=== PATIENT | female | born 1965 | race Caucasian/White ===

== ENCOUNTER 2017-06-04 17:46 | Emergency (ER) ==
[2017-06-04 17:59] VITALS: BP 163/93; TEMP 99.8; BMI 26.5
--- NOTE | 2017-06-04 18:10 | ED.PDOC ---
General ED Provider: Dr. JOCE TEJADA Chief Complaint: Tooth Problem Stated Complaint: dental pain Time Seen by Physician: 17:55 (seen with braden chong at all times ) Mode of Arrival: Walk-In Information Source: Patient Exam Limitations: No limitations Primary Care Provider: NOEMI GUERRERO Nursing and Triage Documentation Reviewed and Agree: Yes Reviewed sepsis parameters & appropriate labs ordered?: Yes System Inflammatory Response Syndrome: Not Applicable Sepsis Protocol: For patient's 13 years and over: Temp is 96.8 and below OR 101 and greater Pulse >90 BPM Resp >20/minute Acutely Altered Mental Status Are patient's symptoms suggestive of a new infection, such as: -Pneumonia -Skin, Soft Tissue -Endocarditis -UTI -Bone, Joint Infection -Implantable Device -Acute Abdominal Infection -Wound Infection -Meningitis -Blood Stream Catheter Infection -Unknown System Inflammatory Response Syndrome: Not Applicable EENT Complaint Exam - Dental/Oral Complaint/Exam Mechanism of Injury: No known trauma Onset/Duration: chronic Symptoms Are: Still present Timing: Constant Initial Severity: Moderate Current Severity: Moderate Character: Reports: Dull, Aching Aggravating: Reports: Heat, Cold, Chewing Alleviating: Reports: Heat, Cold Associated Signs and Symptoms: Denies: Swelling, Discharge, Fever, Foul odor, Foul taste in mouth Related History: Reports: Similar episode Cardiac Risk Factors: Reports: Hypertension Dental/Oral Surgical History: Reports: None Tooth Findings: Present: Gross decay, Gross caries Cervical Lymphadenopathy Present: No Facial Swelling Present: No Bleeding Present: No Septal Hematoma: No Foreign Body Present: No Dysphagia Present: No Drooling Present: No Asymmetrical Tonsillar Swelling Present: No Uvula Midline: No Alyssa-tonsillar Fluctuence: No Trismus Present: No Palatal Petechiae Present: No Scarlatinaform Rash Present: No Teeth Picture: 1 - decay poor dentition Differential Diagnoses: Dental Caries, Fractured Tooth Review of Systems - Review Of Systems Constitutional: Reports: No symptoms Eyes: Reports: No symptoms Ears, Nose, Mouth, Throat: Reports: No symptoms Respiratory: Reports: No symptoms Cardiac: Reports: No symptoms GI: Reports: No symptoms : Reports: No symptoms Musculoskeletal: Reports: No symptoms Skin: Reports: No symptoms Neurological: Reports: No symptoms Endocrine: Reports: No symptoms Hematologic/Lymphatic: Reports: No symptoms All Other Systems: Reviewed and Negative Past Medical History - Past Medical History Endocrine: Reports: Dyslipidemia Cardiovascular: Reports: CAD, Hypertension Respiratory: Reports: None Hematological: Reports: None Gastrointestinal: Reports: None Genitourinary: Reports: None Neuro/Psych: Reports: Anxiety, Depression Musculoskeletal: Reports: None Cancer: Reports: None Last Menstrual Period: hysterectomy Other Pertinent Past Medical History: CHRONIC BACK - Surgical History General Surgical History: Reports: (x3), Appendectomy, Cholecystectomy , Orthopedic (knee), Back Surgery (x3 chronic pain) - Family History Family History: Reports: Unknown - Social History Smoking Status: Current every day smoker, Heavy tobacco smoker Hx Substance Use: No Alcohol Screening: None Physical Exam - Physical Exam Appearance: Well-appearing, No pain distress, Well-nourished Eyes: JES, EOMI, Conjunctiva clear ENT: Ears normal, Nose normal, Oropharynx normal Respiratory: Airway patent, Breath sounds clear, Breath sounds equal, Respirations nonlabored Cardiovascular: RRR, Pulses normal, No rub, No murmur GI/: Soft, Nontender, No masses, Bowel sounds normal, No Organomegaly Musculoskeletal: Normal strength, ROM intact, No edema, No calf tenderness Skin: Warm, Dry, Normal color Neurological: Sensation intact, Motor intact, Reflexes intact, Cranial nerves intact, Alert, Oriented Psychiatric: Affect appropriate, Mood appropriate Critical Care Note - Critical Care Note Total Time (mins): 0 Course - Course Vital Signs: Temp Pulse Resp BP Pulse Ox 06/04/17 17:47 99.8 F H 101 H 20 163/93 H 101 H Departure - Departure Time of Disposition: 18:10 Disposition: HOME SELF-CARE Discharge Problem: Toothache Instructions: Toothache (ED) Condition: Good Pt referred to PMD for follow-up: Yes IPMP verified?: Yes Prescriptions: Hydrocodone/Acetaminophen [[place] 5-325 Tablet] 1 each PO Q6HR PRN #7 tablet PRN Reason: PAIN Amoxicillin 500 mg PO Q8HR #21 tablet Allergies/Adverse Reactions: Allergies morphine Adverse Reaction (Verified 06/04/17 17:56) PROJECTILE VOMITING Home Medications: Ambulatory Orders Amlodipine Besylate [Norvasc] 5 mg PO DAILY 04/16/13 Ranitidine HCl [Zantac] 150 mg PO BIDAC 04/09/14 Lisinopril/Hydrochlorothiazide [Lisinopril-Hctz 20-25 mg Tab] 1 each PO DAILY Albuterol Sulfate [Proair Hfa] 2 puff IH DIRECTED PRN 06/04/17 Amoxicillin 500 mg PO Q8HR #21 tablet 06/04/17 Hydrocodone/Acetaminophen [[place] 5-325 Tablet] 1 each PO Q6HR PRN #7 tablet
== END 2017-06-04 18:14 | disposition home or self-care (01) ==
LOC: ED 17:46
DX: K08.89 Other specified disorders of teeth and supporting structures (principal); K02.7 Dental root caries; F17.210 Nicotine dependence, cigarettes, uncomplicated
CPT/HCPCS: 99282

== ENCOUNTER 2017-09-21 16:29 | Emergency (ER) ==
[2017-09-21 16:33] VITALS: TEMP 99.2; BMI 24.5
[2017-09-21] MEDS ORDERED: MORPHINE 2 MG/ML SYRINGE IM STA (16:51)
[2017-09-21] MEDS ORDERED: ZOFRAN 4 MG/2 ML IM STA (16:51)
--- NOTE | 2017-09-21 16:55 | ED.PDOC ---
General ED Provider: Dr. JOCE TEJADA Chief Complaint: Tooth Problem Stated Complaint: DENTAL PAIN Time Seen by Physician: 16:30 Mode of Arrival: Walk-In Information Source: Patient Exam Limitations: No limitations Nursing and Triage Documentation Reviewed and Agree: Yes Reviewed sepsis parameters & appropriate labs ordered?: Yes System Inflammatory Response Syndrome: Not Applicable Sepsis Protocol: For patient's 13 years and over: Temp is 96.8 and below OR 101 and greater Pulse >90 BPM Resp >20/minute Acutely Altered Mental Status Are patient's symptoms suggestive of a new infection, such as: -Pneumonia -Skin, Soft Tissue -Endocarditis -UTI -Bone, Joint Infection -Implantable Device -Acute Abdominal Infection -Wound Infection -Meningitis -Blood Stream Catheter Infection -Unknown EENT Complaint Exam - Dental/Oral Complaint/Exam Mechanism of Injury: No known trauma Onset/Duration: 1 WEEK Symptoms Are: Still present Timing: Constant Initial Severity: Severe Current Severity: Moderate Character: Reports: Aching, Throbbing Aggravating: Reports: Heat, Cold, Chewing Alleviating: Reports: None Associated Signs and Symptoms: Denies: Swelling, Discharge, Fever, Foul odor, Foul taste in mouth Related History: Reports: Similar episode Dental/Oral Surgical History: Reports: None Tooth Findings: Present: Gross decay, Gross caries, Dental fracture Cervical Lymphadenopathy Present: No Facial Swelling Present: No Bleeding Present: No Oropharynx Findings: Absent: Clots, Active bleeding Septal Hematoma: No Foreign Body Present: No Dysphagia Present: No Drooling Present: No Asymmetrical Tonsillar Swelling Present: No Uvula Midline: Yes Alyssa-tonsillar Fluctuence: No Lesions: Absent: Lip, Gums, Tongue, Buccal Mucosa, Pharynx Exanthem: Absent: Lip, Gums, Tongue, Buccal Mucosa, Pharynx Vesicles: Absent: Lip, Gums, Tongue, Buccal Mucosa, Pharynx Teeth Picture: 1 - DECAY/PAIN Differential Diagnoses: Dental Caries, Fractured Tooth Review of Systems - Review Of Systems Constitutional: Reports: No symptoms Eyes: Reports: No symptoms Ears, Nose, Mouth, Throat: Reports: No symptoms Respiratory: Reports: No symptoms Cardiac: Reports: No symptoms GI: Reports: No symptoms : Reports: No symptoms Musculoskeletal: Reports: No symptoms Skin: Reports: No symptoms Neurological: Reports: No symptoms Endocrine: Reports: No symptoms Hematologic/Lymphatic: Reports: No symptoms All Other Systems: Reviewed and Negative Past Medical History - Past Medical History Previously Healthy: Yes Endocrine: Reports: Dyslipidemia Cardiovascular: Reports: CAD, Hypertension Respiratory: Reports: None Hematological: Reports: None Gastrointestinal: Reports: None Genitourinary: Reports: None Neuro/Psych: Reports: Anxiety, Depression Musculoskeletal: Reports: None Cancer: Reports: None Last Menstrual Period: NONE / HYSTERECTOMY Other Pertinent Past Medical History: CHRONIC BACK - Surgical History General Surgical History: Reports: (x3), Appendectomy, Cholecystectomy , Orthopedic (knee), Back Surgery (x3 chronic pain) - Family History Family History: Reports: Unknown - Social History Smoking Status: Current every day smoker, Heavy tobacco smoker Hx Substance Use: No Alcohol Screening: None - Immunizations Tetanus Shot up to Date: Yes Physical Exam - Physical Exam Appearance: Well-appearing, No pain distress, Well-nourished Eyes: JES, EOMI, Conjunctiva clear ENT: Ears normal, Nose normal, Oropharynx normal Respiratory: Airway patent, Breath sounds clear, Breath sounds equal, Respirations nonlabored Cardiovascular: RRR, Pulses normal, No rub, No murmur GI/: Soft, Nontender, No masses, Bowel sounds normal, No Organomegaly Musculoskeletal: Normal strength, ROM intact, No edema, No calf tenderness Skin: Warm, Dry, Normal color Neurological: Sensation intact, Motor intact, Reflexes intact, Cranial nerves intact, Alert, Oriented Psychiatric: Affect appropriate, Mood appropriate Critical Care Note - Critical Care Note Total Time (mins): 0 Course - Course Orders, Labs, Meds: Orders Category Date Time Status Morphine Sulfate [Morphine 2 mg/ml Syringe] MEDS 09/21/17 16:51 Stat 4 mg IM ONCE STA Ondansetron HCl/Pf [Zofran 4 mg/2 ml] MEDS 09/21/17 16:51 Stat 4 mg IM ONCE STA Medications Generic Name Dose Route Start Last Admin Trade Name Freq PRN Reason Stop Dose Admin Morphine Sulfate 4 mg 09/21/17 16:51 Morphine 2 Mg/Ml Syringe IM 09/21/17 16:52 ONCE STA Ondansetron HCl 4 mg 09/21/17 16:51 Zofran 4 Mg/2 Ml IM 09/21/17 16:52 ONCE STA Vital Signs: Temp Pulse Resp BP Pulse Ox 09/21/17 16:30 99.2 F 109 H 20 197/127 H 97 Departure - Departure Time of Disposition: 16:55 Disposition: HOME SELF-CARE Discharge Problem: Toothache Instructions: Toothache (ED) Condition: Good Pt referred to PMD for follow-up: Yes IPMP verified?: No Additional Instructions: Please call your Family Physician as soon as possible to schedule a follow-up appointment. Prescriptions: Amoxicillin 500 mg PO Q8HR #21 tablet Hydrocodone/Acetaminophen [[place] 10-325 Tablet] 1 each PO Q8HR #10 tablet Allergies/Adverse Reactions: Allergies aspirin [From Anacin] Adverse Reaction (Verified 09/21/17 16:33) morphine Adverse Reaction (Verified 09/21/17 16:33) PROJECTILE VOMITING Home Medications: Ambulatory Orders Amlodipine Besylate [Norvasc] 5 mg PO DAILY 04/16/13 Ranitidine HCl [Zantac] 150 mg PO BIDAC 04/09/14 Lisinopril/Hydrochlorothiazide [Lisinopril-Hctz 20-25 mg Tab] 1 each PO DAILY Albuterol Sulfate [Proair Hfa] 2 puff IH DIRECTED PRN 06/04/17 Amoxicillin 500 mg PO Q8HR #21 tablet 06/04/17 Hydrocodone/Acetaminophen [[place] 5-325 Tablet] 1 each PO Q6HR PRN #7 tablet Amoxicillin 500 mg PO Q8HR #21 tablet 09/21/17 Hydrocodone/Acetaminophen [[place] 10-325 Tablet] 1 each PO Q8HR #10 tablet
[2017-09-21] MEDS ORDERED: DEMEROL 50 MG/ML VIAL IM STA (17:01)
[2017-09-21 17:19] VITALS: BP 153/99
== END 2017-09-21 17:13 | disposition home or self-care (01) ==
LOC: ED 16:29
DX: K08.89 Other specified disorders of teeth and supporting structures (principal); K02.7 Dental root caries; S02.5XXA Fracture of tooth (traumatic), initial encounter for closed fracture; F17.210 Nicotine dependence, cigarettes, uncomplicated
CPT/HCPCS: 96372; 99282

== ENCOUNTER 2017-11-21 18:35 | Emergency (ER) ==
--- NOTE | 2017-11-21 18:39 | ED.PDOC ---
General ED Provider: Dr. BRANDON MONTIEL-ER Chief Complaint: Tooth Problem Stated Complaint: my tooth hurts Time Seen by Physician: 18:37 Mode of Arrival: Walk-In Information Source: Patient Nursing and Triage Documentation Reviewed and Agree: Yes Does patient meet sepsis criteria?: No System Inflammatory Response Syndrome: Not Applicable Sepsis Protocol: For patient's 13 years and over: Temp is 96.8 and below OR 101 and greater Pulse >90 BPM Resp >20/minute Acutely Altered Mental Status Are patient's symptoms suggestive of a new infection, such as: -Pneumonia -Skin, Soft Tissue -Endocarditis -UTI -Bone, Joint Infection -Implantable Device -Acute Abdominal Infection -Wound Infection -Meningitis -Blood Stream Catheter Infection -Unknown EENT Complaint Exam - Dental/Oral Complaint/Exam Mechanism of Injury: No known trauma Onset/Duration: several days Symptoms Are: Still present Timing: Constant Initial Severity: Mild Current Severity: Moderate Location: left premolar upper and left lower premolar Character: Reports: Dull, Aching, Throbbing Aggravating: Reports: None Alleviating: Reports: None Associated Signs and Symptoms: Reports: Swelling Related History: Reports: Previous tooth problem Tooth Findings: Present: Percussion tenderness, Gross decay, Gross caries Cervical Lymphadenopathy Present: No Facial Swelling Present: No Bleeding Present: No Oropharynx Findings: Absent: Clots, Active bleeding Septal Hematoma: No Foreign Body Present: No Dysphagia Present: No Drooling Present: No Asymmetrical Tonsillar Swelling Present: No Uvula Midline: Yes Alyssa-tonsillar Fluctuence: No Trismus Present: No Palatal Petechiae Present: No Scarlatinaform Rash Present: No Differential Diagnoses: Dental Caries Review of Systems - Review Of Systems Constitutional: Reports: No symptoms Eyes: Reports: No symptoms Ears, Nose, Mouth, Throat: Reports: Mouth pain Respiratory: Reports: No symptoms Cardiac: Reports: No symptoms GI: Reports: No symptoms : Reports: No symptoms Musculoskeletal: Reports: No symptoms Skin: Reports: No symptoms Neurological: Reports: No symptoms Endocrine: Reports: No symptoms Hematologic/Lymphatic: Reports: No symptoms All Other Systems: Reviewed and Negative Past Medical History - Past Medical History Previously Healthy: Yes Endocrine: Reports: Dyslipidemia Cardiovascular: Reports: CAD, Hypertension Respiratory: Reports: None Hematological: Reports: None Gastrointestinal: Reports: None Genitourinary: Reports: None Neuro/Psych: Reports: Anxiety, Depression Musculoskeletal: Reports: None Cancer: Reports: None Other Pertinent Past Medical History: CHRONIC BACK - Surgical History General Surgical History: Reports: (x3), Appendectomy, Cholecystectomy , Orthopedic (knee), Back Surgery (x3 chronic pain) - Family History Family History: Reports: Unknown - Social History Smoking Status: Current every day smoker, Heavy tobacco smoker Hx Substance Use: No Alcohol Screening: None Physical Exam - Physical Exam Appearance: Well-appearing, No pain distress, Well-nourished Pain Distress: Mild Eyes: JES ENT: Ears normal, Nose normal, Oropharynx normal (noted several carious teeth in mouth) Neck: Supple Respiratory: Airway patent, Breath sounds clear, Breath sounds equal, Respirations nonlabored Cardiovascular: RRR, Pulses normal, No rub, No murmur GI/: Soft Musculoskeletal: Normal strength, ROM intact, No edema, No calf tenderness Skin: Warm, Dry, Normal color Neurological: Sensation intact Psychiatric: Affect appropriate, Mood appropriate Critical Care Note - Critical Care Note Total Time (mins): 0 Departure - Departure Time of Disposition: 18:39 Disposition: HOME SELF-CARE Discharge Problem: Toothache Instructions: Toothache (ED) Condition: Good Pt referred to PMD for follow-up: Yes IPMP verified?: No Additional Instructions: clindamycin 300mg tid x 7 days--norco 7.5 mg q 4hrs prn pain #10---f/u dentist aliyah Allergies/Adverse Reactions: Allergies aspirin [From Anacin] Adverse Reaction (Verified 09/21/17 16:33) morphine Adverse Reaction (Verified 09/21/17 16:33) PROJECTILE VOMITING Home Medications: Ambulatory Orders Amlodipine Besylate [Norvasc] 5 mg PO DAILY 04/16/13 Ranitidine HCl [Zantac] 150 mg PO BIDAC 04/09/14 Lisinopril/Hydrochlorothiazide [Lisinopril-Hctz 20-25 mg Tab] 1 each PO DAILY Albuterol Sulfate [Proair Hfa] 2 puff IH DIRECTED PRN 06/04/17 Amoxicillin 500 mg PO Q8HR #21 tablet 06/04/17 Hydrocodone/Acetaminophen [[place] 5-325 Tablet] 1 each PO Q6HR PRN #7 tablet Amoxicillin 500 mg PO Q8HR #21 tablet 09/21/17 Hydrocodone/Acetaminophen [[place] 10-325 Tablet] 1 each PO Q8HR #10 tablet Disposition Discussed With: Patient, Family
[2017-11-21 18:40] VITALS: BP 162/88; TEMP 99.4; BMI 25.2
== END 2017-11-21 18:57 | disposition home or self-care (01) ==
LOC: ED 18:35
DX: K08.89 Other specified disorders of teeth and supporting structures (principal); K02.7 Dental root caries; F17.210 Nicotine dependence, cigarettes, uncomplicated
CPT/HCPCS: 99282

== ENCOUNTER 2018-09-02 12:44 | Emergency (ER) | payer OTHER ==
[2018-09-02 12:49] VITALS: BP 169/97; TEMP 98.6; BMI 23.6
--- NOTE | 2018-09-02 13:15 | ED.PDOC ---
General ED Provider: Dr. JOCE TEJADA Chief Complaint: Bite Stated Complaint: in the emergency room for M.D. to remove a tick right neck over the carotid region right Time Seen by Physician: 13:00 (see photos) Mode of Arrival: Walk-In Information Source: Patient Exam Limitations: No limitations Nursing and Triage Documentation Reviewed and Agree: Yes Does patient meet sepsis criteria?: Yes If yes, has appropriate treatment been initiated?: No (SEEN WITH JESSA AT ALL TIMES) System Inflammatory Response Syndrome: Not Applicable (see photos) Sepsis Protocol: For patient's 13 years and over: Temp is 96.8 and below OR 101 and greater Pulse >90 BPM Resp >20/minute Acutely Altered Mental Status Are patient's symptoms suggestive of a new infection, such as: -Pneumonia -Skin, Soft Tissue -Endocarditis -UTI -Bone, Joint Infection -Implantable Device -Acute Abdominal Infection -Wound Infection -Meningitis -Blood Stream Catheter Infection -Unknown Skin Complaint Exam - Skin/Soft Tissue Complaint/Exam Onset/Duration: 1 day ago noted a tick Symptoms Are: Still present, Resolved Review of Systems - Review Of Systems Constitutional: Reports: Malaise Eyes: Reports: No symptoms Ears, Nose, Mouth, Throat: Reports: No symptoms Respiratory: Reports: No symptoms Cardiac: Reports: No symptoms GI: Reports: Abdominal pain (epigastric ), Nausea, Poor appetite. Denies: Blood streaked bowels, Diarrhea, Vomiting : Reports: No symptoms Musculoskeletal: Reports: No symptoms Skin: Reports: No symptoms Neurological: Reports: No symptoms Endocrine: Reports: No symptoms Hematologic/Lymphatic: Reports: No symptoms All Other Systems: Reviewed and Negative Past Medical History - Past Medical History Previously Healthy: Yes Endocrine: Reports: Dyslipidemia Cardiovascular: Reports: CAD, Hypertension Respiratory: Reports: None Hematological: Reports: None Gastrointestinal: Reports: None Genitourinary: Reports: None Neuro/Psych: Reports: Anxiety, Depression Musculoskeletal: Reports: None Cancer: Reports: None Last Menstrual Period: N/A Other Pertinent Past Medical History: CHRONIC BACK - Surgical History General Surgical History: Reports: (x3), Appendectomy, Cholecystectomy , Orthopedic (knee), Back Surgery (x3 chronic pain) - Family History Family History: Reports: Unknown - Social History Smoking Status: Current every day smoker, Heavy tobacco smoker Hx Substance Use: No Alcohol Screening: None - Immunizations Tetanus Shot up to Date: No Physical Exam - Physical Exam Appearance: Ill-appearing Ill-appearing: Moderate Pain Distress: Severe Eyes: JES, EOMI, Conjunctiva clear ENT: Ears normal, Nose normal, Oropharynx normal Respiratory: Airway patent, Breath sounds clear, Breath sounds equal, Respirations nonlabored Cardiovascular: RRR, Pulses normal, No rub, No murmur GI/: Tender Musculoskeletal: Normal strength, ROM intact, No edema, No calf tenderness Skin: Warm (NO TICK NOTED ON THE RIGHT NECK REGION), Dry, Normal color Neurological: Sensation intact, Motor intact, Reflexes intact, Cranial nerves intact, Alert, Oriented Psychiatric: Affect appropriate, Mood appropriate Interpretation - Radiology Interpretation Radiology Interpretation By: Radiologist Radiology Results: Positive (S.B.O) Re-Evaluation - Re-Evaluation Time of Re-Evaluation: 13:21 Status: Improved Vital Signs Stable: Yes Pain Level: 2/10 Appearance: NAD Lungs: Clear Skin: Warm and Dry Neuro: Alert and Oriented X3 CV: RRR Physician Notification - Case Discussed Physician Notified: PMD Time of Notification: 13:19 ( CONSULTHER SURGEON ) Critical Care Note - Critical Care Note Total Time (mins): 0 Course - Course Orders, Labs, Meds: Orders Category Date Time Status TRANSFER TO OUTSIDE FACILITY .TO [facility] ( CARE 09/02/18 13:22 Inactive [place] MD) WRITE TRANSFER/SBAR NOTE ONCE CARE 09/02/18 13:22 Inactive DISCHARGE ASSESSMENT ONCE DISCHARGE 09/02/18 13:22 Inactive WRITE DISCHARGE NOTE ONCE DISCHARGE 09/02/18 13:22 Inactive EHRLICHIA DNA, PCR Stat LAB 09/02/18 13:22 Received LYME, WESTERN BLOT, SERUM Stat LAB 09/02/18 13:22 Received PARTIAL THROMBOPLASTIN TIME Stat LAB 09/02/18 13:21 Stop Req PT WITH INR Stat LAB 09/02/18 13:21 Stop Req [facility] SPOTTED FEVER,IgG Stat LAB 09/02/18 13:22 Received [facility] SPOTTED FEVER,IgM Stat LAB 09/02/18 13:22 Received Vital Signs: Temp Pulse Resp BP Pulse Ox 09/02/18 12:44 98.6 F 84 16 169/97 H 96 Departure - Departure Time of Disposition: 13:26 (SEE PHOTOS NO TICK RECOVED ) Disposition: TSF SHORT-TRM HOSP Discharge Problem: Small bowel obstruction Instructions: Bowel Obstruction (ED) Condition: Good Pt referred to PMD for follow-up: Yes IPMP verified?: No Additional Instructions: Please call your Family Physician as soon as possible to schedule a follow-up appointment. WE DID NOT SEE ANY TICKS. BUT SPECIAL BLOOD TEST FOR THE TICK BITE HAS BEEN ORDERED TO MAKE SURE THE TICK HAS NOT TRANSMITTED SERIOUS ILLNESS. YOU MUST SEE YOUR M.D. IN ABOUT A WEEK TO GET THESE SEND OUT RESULTS. Allergies/Adverse Reactions: Allergies aspirin [From Anacin] Adverse Reaction (Verified 09/02/18 12:52) morphine Adverse Reaction (Verified 09/02/18 12:52) PROJECTILE VOMITING Home Medications: Ambulatory Orders Amlodipine Besylate [Norvasc] 5 mg PO DAILY 04/16/13 Ranitidine HCl [Zantac] 150 mg PO BIDAC 04/09/14 Lisinopril/Hydrochlorothiazide [Lisinopril-Hctz 20-25 mg Tab] 1 each PO DAILY Albuterol Sulfate [Proair Hfa] 2 puff IH DIRECTED PRN 06/04/17 Disposition Discussed With: Patient
[2018-09-02] MEDS ORDERED: UNASYN 3 GM in SODIUM CHLORIDE 100 ML IV STA (13:21)
== END 2018-09-02 13:41 | disposition home or self-care (01) ==
LOC: ED 12:44
DX: S10.96XA Insect bite of unspecified part of neck, initial encounter (principal); W57.XXXA Bitten or stung by nonvenomous insect and other nonvenomous arthropods, initial encounter; F17.210 Nicotine dependence, cigarettes, uncomplicated
CPT/HCPCS: 36415; 86617; 86757; 87798; 99283